=== PATIENT | male | born 1955 | race Caucasian/White ===

== ENCOUNTER 2023-01-07 18:22 | Inpatient (IN) | payer MEDICARE, BC ==
[~2023-01-07] VITALS: Ht 170.2 cm; Wt 86.2 kg
[2023-01-07] MEDS ORDERED: Simvastatin20 MG PO (18:32)
[2023-01-07] MEDS ORDERED: PREGABALIN50 MG PO (18:32)
[2023-01-07] MEDS ORDERED: TOPI100 PO (18:32)
[2023-01-07] MEDS ORDERED: VALP250 PO (18:33)
[2023-01-07] MEDS ORDERED: TOPI25C PO (18:33)
[2023-01-07 18:42] LABS: BASOPHILS ABSOLUTE AUTO 0.08 K/mm3 (0.00-0.23); BASOPHILS PERCENT AUTO 1 % (0-2); EOSINOPHILS ABSOLUTE AUTO 0.25 K/mm3 (0.00-0.68); EOSINOPHILS PERCENT AUTO 3 % (0-6); Hematocrit 45.5 % (37.0-53.0); Hemoglobin 15.6 g/dL (13.5-17.5); IMMATURE GRAN ABSOLUTE AUTO 0.01 K/mm3 (0.00-0.10); IMMATURE GRAN PERCENT AUTO 0 % (0-1); LYMPHOCYTES ABSOLUTE AUTO 2.14 K/mm3 (0.84-5.20); LYMPHOCYTES PERCENT AUTO 25 % (21-46); MONOCYTES ABSOLUTE AUTO 0.73 K/mm3 (0.16-1.47); MONOCYTES PERCENT AUTO 9 % (4-13); Mean Corpuscular HGB 33.6 pg (26.0-34.0); Mean Corpuscular HGB Conc 34.3 g/dL (31.5-36.5); Mean Corpuscular Volume 98 fL (80-100); NEUTROPHILS ABSOLUTE AUTO 5.29 K/mm3 (1.96-9.15); NEUTROPHILS PERCENT AUTO 62 % (41-73); Platelet Count 268 K/mm3 (150-400); RDW Coefficient Variation 14.2 % (11.7-14.2); Red Blood Cell Count 4.64 M/mm3 (4.30-5.90)
[2023-01-07 19:23] LABS: Albumin, Blood 3.3 g/dL (3.4-5.0); Albumin/Globulin Ratio 0.9 (0.8-1.8); Bilirubin, Total 0.2 mg/dL (0.1-1.0); Bun/Creatinine Ratio 22.9 (12.0-20.0); Calcium, Blood 7.5 mg/dL (8.5-10.1); Creatinine, Blood 1.09 mg/dL (0.60-1.20); Globulin, Blood 3.6 g/dL (2.2-4.0); Potassium, Blood 3.6 mmol/L (3.5-5.5); Total Protein, Blood 6.9 g/dL (6.4-8.2)
[2023-01-07 22:12] LABS: Anti-Xa UFH, PHA Monitoring <0.10 IU/mL; International Normalized Ratio 0.93; Prothrombin Time Results 9.8 Sec (9.7-11.5)
[2023-01-07 23:36] VITALS: BP 135/94
--- NOTE | 2023-01-08 05:41 | NUR ---
SHIFT SUMMARY A/OX4, SBA TO BATHROOM. TELE SR 70-80S. SPO2 >92% ON 3L NC. DYSPNEA NOTED WITH EXERTION. REPORTS R. SIDED PLEURTIC PAIN, MEDICATED PER EMAR. HEPARIN GTT INFUSING PER EMAR. VSS, NO ACUTE CHANGES AT THIS TIME. BED IN LOWEST POSITION WITH CALL LIGHT IN REACH. WILL CONTINUE TO MONITOR AND REPORT TO ONCOMING RN.
[2023-01-08 05:43] LABS: BASOPHILS ABSOLUTE AUTO 0.07 K/mm3 (0.00-0.23); BASOPHILS PERCENT AUTO 1 % (0-2); EOSINOPHILS PERCENT AUTO 3 % (0-6); Hematocrit 41.8 % (37.0-53.0); IMMATURE GRAN ABSOLUTE AUTO 0.01 K/mm3 (0.00-0.10); IMMATURE GRAN PERCENT AUTO 0 % (0-1); LYMPHOCYTES ABSOLUTE AUTO 2.38 K/mm3 (0.84-5.20); LYMPHOCYTES PERCENT AUTO 31 % (21-46); MONOCYTES ABSOLUTE AUTO 0.75 K/mm3 (0.16-1.47); MONOCYTES PERCENT AUTO 10 % (4-13); Mean Corpuscular HGB 33.3 pg (26.0-34.0); Mean Corpuscular HGB Conc 33.5 g/dL (31.5-36.5); Mean Corpuscular Volume 99 fL (80-100); Mean Platelet Volume 9.6 fL (9.1-12.4); NEUTROPHILS ABSOLUTE AUTO 4.33 K/mm3 (1.96-9.15); NEUTROPHILS PERCENT AUTO 56 % (41-73); Platelet Count 192 K/mm3 (150-400); RDW Coefficient Variation 14.2 % (11.7-14.2); Red Blood Cell Count 4.21 M/mm3 (4.30-5.90); White Blood Cell Count 7.74 K/mm3 (4.00-11.30)
[2023-01-08 06:03] VITALS: BP 119/67
[2023-01-08 06:18] LABS: Albumin, Blood 2.9 g/dL (3.4-5.0); Albumin/Globulin Ratio 0.9 (0.8-1.8); Bilirubin, Total 0.5 mg/dL (0.1-1.0); Bun/Creatinine Ratio 25.5 (12.0-20.0); Calcium, Blood 7.5 mg/dL (8.5-10.1); Creatinine, Blood 1.02 mg/dL (0.60-1.20); Globulin, Blood 3.2 g/dL (2.2-4.0); Potassium, Blood 3.6 mmol/L (3.5-5.5); Total Protein, Blood 6.1 g/dL (6.4-8.2)
[2023-01-08 07:20] VITALS: BP 131/83
[2023-01-08 12:59] VITALS: BP 138/73
[2023-01-08 15:55] VITALS: BP 139/91
--- NOTE | 2023-01-08 17:21 | NUR ---
END OF SHIFT NOTE: PT A&OX4, ABLE TO CALL APPROPRIATELY AND MAKE NEEDS KNOWN TO STAFF. HR MOSTLY 70-80'S, NSR. BP STABLE. SPO2 >92% ON 2-7L NC. DYSPNEA WITH EXERTION. PT REPORTS RIGHT SIDED CHEST PAIN, MEDICATED PER EMAR. PT REPORTS IMPROVEMENT WITH MEDICATION ADMINISTRATION. HEPARIN GTT INFUSING PER EMAR. PT ABLE TO VOID IN URINAL INDEPENDENTLY. NO BM'S THIS SHIFT. FAMILY AT BEDSIDE. CALL LIGHT WITHIN REACH, NO FURTHER NEEDS AT THIS TIME. WILL REPORT TO ONCOMING RN.
[2023-01-08 19:46] VITALS: BP 152/79
[2023-01-08] MEDS ORDERED: VITAMIN D325 MC3 PO (22:32)
[2023-01-08 23:18] VITALS: BP 139/85
[2023-01-09 04:21] LABS: Hematocrit 40.1 % (37.0-53.0); Hemoglobin 13.6 g/dL (13.5-17.5); Mean Platelet Volume 9.7 fL (9.1-12.4); Platelet Count 185 K/mm3 (150-400)
[2023-01-09 04:43] VITALS: BP 118/79
--- NOTE | 2023-01-09 05:53 | NUR ---
SHIFT SUMMARY PATIENT ALERT AND ORIENTED, ABLE TO MAKE NEEDS KNOWN. VITALS STABLE, PATIENT WEARING 2L NC WITH O2 SAT MID 90s. PATIENT REPORTS SOME SOB WITH DEEP BREATHING. USING URINAL AT BEDSIDE WITH ADEQUATE OUTPUT. TURNING SELF IN BED. HEPARIN INFUSING PER EMAR. NO OTHER SIGNIFICANT CHANGES, WILL REPORT TO DAY SHIFT RN. PATIENT EDUCATED ON IGNITION RISK, NONE NOTED AT THIS TIME. PATIENT VERBALIZED UNDERSTANDING. WILL CONTINUE TO MONITOR PATIENT'S RISK FOR IGNITION.
[2023-01-09 08:32] VITALS: BP 146/96
[2023-01-09] MEDS ORDERED: ELIQUIS5 M2 PO ×2 (10:58→11:01)
[2023-01-09] MEDS ORDERED: Percocet 5-3251 EACH PO (11:02)
[2023-01-09 11:52] VITALS: BP 141/87
--- NOTE | 2023-01-09 12:08 | NUR ---
DISCHARGE: PT D/C @1208 VIA WHEELCHAIR. EDUCATION AND DISCHARGE INSTRUCTIONS PROVIDED. ALL BELONGINGS WITH PT.
== END 2023-01-09 12:05 | disposition home or self-care (01) | DRG 175 ==
LOC: ER 18:22 → PCU 21:59
PROVIDERS: Student in an Organized Health Care Education/Training Program; ADMIT Student in an Organized Health Care Education/Training Program
DX: I26.09 Other pulmonary embolism with acute cor pulmonale (principal); J96.01 Acute respiratory failure with hypoxia; R56.9 Unspecified convulsions; Z88.0 Allergy status to penicillin; Z88.8 Allergy status to other drugs, medicaments and biological substances; Z79.899 Other long term (current) drug therapy; Z86.718 Personal history of other venous thrombosis and embolism; Z87.891 Personal history of nicotine dependence
CPT/HCPCS: 36415; 71046; 71260; 80053; 83735; 83880; 84484; 85014; 85018; 85025; 85049; 85520; 85610; 85730; 93005; 93010; 93306; 94761; 94762; 96374-59; 99285-25; A9270; J1644; J1885; Q9967

== ENCOUNTER 2024-07-04 08:20 | Day surgery (SDC) | payer MEDICARE, BC ==
[~2024-07-04] VITALS: Ht 172.7 cm; Wt 84.6 kg
[~2024-07-04 08:20] MED LIST: ELIQUIS5 M2 PO; Lactated Ringer's 1,000 ML IV SCH; PREGABALIN50 MG PO; Percocet 5-3251 EACH PO; Simvastatin20 MG PO; TOPI100 PO; TOPI25 PO; VALP250 PO; VITAMIN D325 MC3 PO
[2024-07-04 09:26] VITALS: BP 146/98
[2024-07-04] MEDS ORDERED: propofoL 40 ML IV ONE (09:41)
--- NOTE | 2024-07-04 09:55 | NUR ---
07/04/24 0955 Valerie Chaudhary MONITOR INTACT WITH CONTINUOUS PULSE OXIMETRY, CONTINUOUS END TITAL CO2, AND INTERMITTENT BLOOD PRESSURE. O2 VIA POM INTACT THROUGHOUT SEDATION/PROCEDURE. SEE DR. MORTON'S SEDATION RECORD
[2024-07-04 10:30] VITALS: BP 129/90
[2024-07-04 10:45] VITALS: BP 126/84
--- NOTE | 2024-07-04 11:02 | NUR ---
Patient up to Ambulate independently. Gait steady. Discharge instructions reviewed with patient. Patient verbalizes understanding. Copy given to patient to take home, WELL . Patient States Post-Procedure ride home has been arranged. Discharged via wheelchair to private car for ride home. PT DENIES PAIN. TOLERATING PO. REPORTS READY TO GO HOME.
== END 2024-07-04 11:02 | disposition home or self-care (01) ==
LOC: ORSCMMR 08:20 → ORD 09:30 → ORSCMMR 09:30
PROVIDERS: Internal Medicine Gastroenterology
PROC: 0DBK8ZX Excision of Ascending Colon, Via Natural or Artificial Opening Endoscopic, Diagnostic (ICD-10-PCS; principal; 2024-07-04 09:30)
DX: Z12.11 Encounter for screening for malignant neoplasm of colon (principal); K63.5 Polyp of colon; K57.30 Diverticulosis of large intestine without perforation or abscess without bleeding; Z86.711 Personal history of pulmonary embolism; E78.00 Pure hypercholesterolemia, unspecified; G47.33 Obstructive sleep apnea (adult) (pediatric); G40.909 Epilepsy, unspecified, not intractable, without status epilepticus; Z79.01 Long term (current) use of anticoagulants; Z79.899 Other long term (current) drug therapy
CPT/HCPCS: 88305; J2704; J7120